=== PATIENT | female | born 1970 | race Two or more races ===

== ENCOUNTER 2021-08-31 04:06 | Emergency (ER) | payer OTHER ==
[~2021-08-31] VITALS: Ht 160 cm; Wt 52.2 kg
[2021-08-31] MEDS ORDERED: DOXYCYCLINE HY100 M2 PO (07:26)
== END 2021-08-31 07:47 | disposition home or self-care (01) ==
LOC: ER 04:06
DX: N34.2 Other urethritis (principal); N39.0 Urinary tract infection, site not specified